=== PATIENT | female | born 1970 | race Caucasian/White ===

== ENCOUNTER 2017-11-30 15:57 | Inpatient (IN) ==
[2017-11-30] MEDS ORDERED: ASPIRIN 325 MG TABLET PO STA (16:34)
[2017-11-30 16:38] LABS: Basophils % 0.2 % (0.0-0.8); Eosinophils # 0.1 10*3/uL (0.0-0.87); Eosinophils % 1.2 % (0.00-10.9); Hematocrit 33.8 VOL% (35.7-47.0); Hemoglobin 10.5 GM/DL (12.0-16.0); Immature Granulocytes % 0.2 %; Immature Granulocytes Absolute 0.01 #; Lymphocytes # 1.7 10*3/uL (1.4-4.0); Lymphocytes % 40.7 % (21.3-54.2); Mean Corpuscular HGB Conc 31.1 GM/DL (32-36); Mean Corpuscular Hemoglobin 27 PG (27-34); Mean Corpuscular Volume 86.2 FL (87-102); Mean Platelet Volume 11.6 FL (9.6-12.0); Monocytes # 0.6 10*3/uL (0.11-0.8); Monocytes % 14.1 % (1.7-12.7); Neutrophils # 1.8 10*3/uL (1.4-7.4); Neutrophils % 43.6 % (38.7-73.9); Platelet Count 111 T/CUMM (130-400); Red Blood Count 3.92 MC/CUMM (3.8-5.5); Red Cell Distribution Width 13.3 % (9.3-17.3); White Blood Count 4.1 T/CUMM (4-12)
[2017-11-30 16:52] LABS: Alanine Aminotransferase 21 U/L (13-56); Albumin 3.3 G/DL (3.4-5.0); Alkaline Phosphatase 98 U/L (45-117); Aspartate Amino Transferase 18 U/L (0-37); Bilirubin,Total < 0.39 MG/DL (0.2-1.0); Blood Urea Nitrogen 7 MG/DL (7-18); Calcium 8.4 MG/DL (8.5-10.1); Glucose 82 MG/DL (74-106); Potassium 3.8 MMOL/L (3.5-5.1); Sodium 143 MMOL/L (136-145); Total Protein 5.5 G/DL (6.4-8.3)
[2017-11-30 17:03] LABS: Barbiturates Screen,Urine Negative (Negative); Benzodiazepines Screen,Urine Negative (Negative); Cannabinoid Screen,Urine Negative (Negative); Opiate Screen,Urine Negative (Negative); Phencyclidine Screen,Urine Negative (Negative)
[2017-11-30] MEDS ORDERED: NAPROXEN 500 MG TABLET PO PRN (18:57)
[2017-11-30] MEDS ORDERED: RIZATRIPTAN ODT 5 MG TABLET PO PRN (18:57)
[2017-11-30] MEDS ORDERED: BACLOFEN 10 MG TABLET PO PRN (18:57)
[2017-11-30] MEDS: ONDANSETRON 4 MG/2 ML VIAL IV PRN ×2 (19:21→23:17)
[2017-11-30] MEDS ORDERED: INFLUENZA VIRUS VACCINE 0.5 ML SYRINGE IM ONE (20:32)
[2017-11-30] MEDS: ACETAMINOPHEN 325 MG TABLET PO PRN (20:58)
[2017-11-30] MEDS: TOPIRAMATE 200 MG TABLET PO SCH (20:59)
[2017-11-30] MEDS: ALPRAZolam 0.5 MG TABLET PO PRN (20:59)
[2017-11-30] MEDS: PANTOPRAZOLE 40 MG TABLET PO SCH (20:59)
[2017-11-30] MEDS: SODIUM CHLORIDE 0.9% 1,000 ML IV SCH (21:00)
[2017-11-30 22:48] LABS: Apearance,Urine CLEAR (Clear); Bilirubin,Urine Negative (Negative); Blood, Urine Negative (Negative); Glucose,Urine (UA) Negative (Negative); Ketones,Urine Negative (Negative); Mucus,Urine Occasional /LPF (Occasional); Nitrite,Urine Negative (Negative); Protein,Urine Negative; Squamous Epithelial Cell,Urine Occasional /HPF (0-10); Urine Color Yellow (Yellow); Urine Specific Gravity 1.004 (1.001-1.035); Urine Urobilinogen < 2.0 EU/DL (0.2-1.0); WBC,Urine <1 /HPF (0-6)
[2017-11-30 22:53] LABS: Troponin I < 0.015 NG/ML (0.00-0.045)
[2017-12-01] MEDS: PROMETHAZINE 25 MG TABLET PO PRN (00:16)
[2017-12-01 01:07] LABS: Basophils % 0.5 % (0.0-0.8); Eosinophils # 0.1 10*3/uL (0.0-0.87); Eosinophils % 1.6 % (0.00-10.9); Hematocrit 33.5 VOL% (35.7-47.0); Hemoglobin 10.1 GM/DL (12.0-16.0); Immature Granulocytes % 0.3 %; Immature Granulocytes Absolute 0.01 #; Lymphocytes # 1.7 10*3/uL (1.4-4.0); Lymphocytes % 44.6 % (21.3-54.2); Mean Corpuscular HGB Conc 30.1 GM/DL (32-36); Mean Corpuscular Hemoglobin 26 PG (27-34); Mean Platelet Volume 11.5 FL (9.6-12.0); Monocytes # 0.6 10*3/uL (0.11-0.8); Monocytes % 16.5 % (1.7-12.7); Neutrophils # 1.4 10*3/uL (1.4-7.4); Neutrophils % 36.5 % (38.7-73.9); Platelet Count 102 T/CUMM (130-400); Red Blood Count 3.85 MC/CUMM (3.8-5.5); Red Cell Distribution Width 13.2 % (9.3-17.3); White Blood Count 3.8 T/CUMM (4-12)
[2017-12-01 01:22] LABS: Osmolality,Calculated 282.7 MOS/KG (273-304)
[2017-12-01 01:25] LABS: Risk Ratio 3.08; VLDL CHOLESTEROL 11.2 MG/DL
[2017-12-01 01:26] LABS: Troponin I < 0.015 NG/ML (0.00-0.045)
[2017-12-01 02:26] LABS: Band Neutrophils 1 % (0-10); Eosinophils 2 % (0-10); Lymphocytes 45 % (20-55); Nucleated Red Blood Cells 3 (0-5); Segmented Neutrophils 39 % (50-85); Total Cells Counted 100
[2017-12-01 02:27] LABS: Anisocytosis Slight; Microcytosis Slight; Platelet Estimate Decreased
[2017-12-01] MEDS: ONDANSETRON 4 MG/2 ML VIAL IV PRN ×3 (06:04→22:00)
[2017-12-01] MEDS: LEVOTHYROXINE 100 MCG TABLET PO SCH (06:04)
[2017-12-01] MEDS ORDERED: CYANOCOBALAMIN 1000 MCG/1 ML VIAL IM SCH (09:00)
[2017-12-01] MEDS ORDERED: PANTOPRAZOLE 40 MG TABLET PO SCH (09:00)
[2017-12-01] MEDS ORDERED: MAGNESIUM SULF RIDER 4 GM in PREMIX 1 EACH IV PRN (09:04)
[2017-12-01] MEDS: ESCITALOPRAM 10 MG TABLET PO SCH (09:06)
[2017-12-01] MEDS: PANTOPRAZOLE 40 MG TABLET PO SCH ×2 (09:06→20:21)
[2017-12-01] MEDS: PROPRANOLOL 40 MG TABLET PO SCH (09:06)
[2017-12-01] MEDS: buPROPion XL 150 MG TABLET PO SCH (09:06)
[2017-12-01] MEDS: TOPIRAMATE 200 MG TABLET PO SCH ×2 (09:06→20:21)
[2017-12-01] MEDS: CETIRIZINE 10 MG TABLET PO SCH (09:06)
[2017-12-01] MEDS: POTASSIUM CHLORIDE 20 MEQ TABLET PO PRN ×3 (10:24→18:49)
[2017-12-01] MEDS: MAGNESIUM SULF RIDER 2 GM in PREMIX 1 EACH IV PRN (10:29)
[2017-12-01] MEDS ORDERED: LORazepam 2 MG/1 ML VIAL IV ONE (14:01)
[2017-12-01] MEDS: SODIUM CHLORIDE 0.9% 1,000 ML IV SCH (15:48)
[2017-12-01] MEDS: ALPRAZolam 0.5 MG TABLET PO PRN (20:21)
[2017-12-02 04:58] LABS: Basophils % 0.2 % (0.0-0.8); Eosinophils # 0.1 10*3/uL (0.0-0.87); Eosinophils % 1.3 % (0.00-10.9); Hematocrit 34.1 VOL% (35.7-47.0); Hemoglobin 10.5 GM/DL (12.0-16.0); Immature Granulocytes % 0.4 %; Immature Granulocytes Absolute 0.02 #; Lymphocytes # 1.6 10*3/uL (1.4-4.0); Lymphocytes % 29.7 % (21.3-54.2); Mean Corpuscular HGB Conc 30.8 GM/DL (32-36); Mean Corpuscular Hemoglobin 27 PG (27-34); Mean Corpuscular Volume 87.2 FL (87-102); Mean Platelet Volume 11.7 FL (9.6-12.0); Monocytes # 0.5 10*3/uL (0.11-0.8); Monocytes % 9.6 % (1.7-12.7); Neutrophils # 3.1 10*3/uL (1.4-7.4); Neutrophils % 58.8 % (38.7-73.9); Platelet Count 109 T/CUMM (130-400); Red Blood Count 3.91 MC/CUMM (3.8-5.5); Red Cell Distribution Width 13.3 % (9.3-17.3); White Blood Count 5.3 T/CUMM (4-12)
[2017-12-02 05:24] LABS: Calcium 8.2 MG/DL (8.5-10.1); Osmolality,Calculated 286.6 MOS/KG (273-304); Potassium 4.2 MMOL/L (3.5-5.1)
[2017-12-02] MEDS: PROMETHAZINE 25 MG TABLET PO PRN ×2 (06:31→15:37)
[2017-12-02] MEDS: LEVOTHYROXINE 100 MCG TABLET PO SCH (06:31)
[2017-12-02] MEDS: SODIUM CHLORIDE 0.9% 1,000 ML IV SCH ×2 (06:31→15:05)
[2017-12-02] MEDS: TOPIRAMATE 200 MG TABLET PO SCH ×2 (09:33→21:26)
[2017-12-02] MEDS: PANTOPRAZOLE 40 MG TABLET PO SCH ×2 (09:33→21:26)
[2017-12-02] MEDS: buPROPion XL 150 MG TABLET PO SCH (09:33)
[2017-12-02] MEDS: CETIRIZINE 10 MG TABLET PO SCH (09:34)
[2017-12-02] MEDS: ASPIRIN EC 81 MG TABLET PO SCH (09:34)
[2017-12-02] MEDS: ESCITALOPRAM 10 MG TABLET PO SCH (09:34)
[2017-12-02] MEDS: PROPRANOLOL 40 MG TABLET PO SCH (09:35)
[2017-12-02] MEDS: ACETAMINOPHEN 325 MG TABLET PO PRN (21:26)
[2017-12-02] MEDS: ALPRAZolam 0.5 MG TABLET PO PRN (21:26)
[2017-12-03 06:15] LABS: Calcium 7.9 MG/DL (8.5-10.1); Osmolality,Calculated 287.4 MOS/KG (273-304); Potassium 3.6 MMOL/L (3.5-5.1)
[2017-12-03 06:19] LABS: Free T4 (Free Thyroxine) 1.38 NG/DL (0.76-1.46); Thyroid Stimulating Hormone < 0.005 uIU/ml (0.358-3.74)
[2017-12-03] MEDS: PROMETHAZINE 25 MG TABLET PO PRN ×2 (07:01→15:17)
[2017-12-03] MEDS: LEVOTHYROXINE 100 MCG TABLET PO SCH (07:01)
[2017-12-03 07:02] LABS: Basophils % 0.3 % (0.0-0.8); Eosinophils # 0.1 10*3/uL (0.0-0.87); Eosinophils % 2.8 % (0.00-10.9); Hematocrit 31.4 VOL% (35.7-47.0); Hemoglobin 9.4 GM/DL (12.0-16.0); Immature Granulocytes % 0.3 %; Immature Granulocytes Absolute 0.01 #; Lymphocytes # 1.6 10*3/uL (1.4-4.0); Lymphocytes % 45.4 % (21.3-54.2); Mean Corpuscular HGB Conc 29.9 GM/DL (32-36); Mean Corpuscular Hemoglobin 27 PG (27-34); Mean Platelet Volume 11.9 FL (9.6-12.0); Monocytes # 0.4 10*3/uL (0.11-0.8); Monocytes % 10.9 % (1.7-12.7); Neutrophils # 1.5 10*3/uL (1.4-7.4); Neutrophils % 40.3 % (38.7-73.9); Red Blood Count 3.53 MC/CUMM (3.8-5.5); Red Cell Distribution Width 13.4 % (9.3-17.3); White Blood Count 3.6 T/CUMM (4-12)
[2017-12-03 07:05] LABS: Platelet Count 73 T/CUMM (130-400)
[2017-12-03 07:31] LABS: Hypochromasia 1+; Ovalocytes Slight; Platelet Estimate Decreased
[2017-12-03] MEDS: PROPRANOLOL 40 MG TABLET PO SCH (09:51)
[2017-12-03] MEDS: TOPIRAMATE 200 MG TABLET PO SCH ×2 (09:54→20:00)
[2017-12-03] MEDS: CETIRIZINE 10 MG TABLET PO SCH (09:54)
[2017-12-03] MEDS: ESCITALOPRAM 10 MG TABLET PO SCH (09:54)
[2017-12-03] MEDS: buPROPion XL 150 MG TABLET PO SCH (09:54)
[2017-12-03] MEDS: PANTOPRAZOLE 40 MG TABLET PO SCH (09:54)
[2017-12-03] MEDS: MAGNESIUM SULF RIDER 2 GM in PREMIX 1 EACH IV PRN (09:55)
[2017-12-03] MEDS: ASPIRIN EC 81 MG TABLET PO SCH (09:55)
[2017-12-03] MEDS: ONDANSETRON 4 MG/2 ML VIAL IV PRN ×2 (10:02→19:42)
[2017-12-03] MEDS ORDERED: KETOROLAC 15 MG/1 ML VIAL IV ONE (11:45)
[2017-12-03] MEDS: ALPRAZolam 0.5 MG TABLET PO PRN (20:00)
[2017-12-04] MEDS: PANTOPRAZOLE 40 MG TABLET PO SCH ×3 (02:19→20:25)
[2017-12-04 03:26] LABS: Basophils % 0.4 % (0.0-0.8); Eosinophils # 0.1 10*3/uL (0.0-0.87); Eosinophils % 2.9 % (0.00-10.9); Hematocrit 29.3 VOL% (35.7-47.0); Hemoglobin 8.9 GM/DL (12.0-16.0); Immature Granulocytes % 0.4 %; Immature Granulocytes Absolute 0.01 #; Lymphocytes # 1.3 10*3/uL (1.4-4.0); Mean Corpuscular HGB Conc 30.4 GM/DL (32-36); Mean Corpuscular Hemoglobin 26 PG (27-34); Mean Corpuscular Volume 86.7 FL (87-102); Mean Platelet Volume 11.6 FL (9.6-12.0); Monocytes # 0.2 10*3/uL (0.11-0.8); Monocytes % 8.6 % (1.7-12.7); Neutrophils # 1.2 10*3/uL (1.4-7.4); Neutrophils % 42.7 % (38.7-73.9); Platelet Count 69 T/CUMM (130-400); Red Blood Count 3.38 MC/CUMM (3.8-5.5); Red Cell Distribution Width 13.3 % (9.3-17.3); White Blood Count 2.8 T/CUMM (4-12)
[2017-12-04 04:01] LABS: Osmolality,Calculated 289.3 MOS/KG (273-304); Potassium 3.5 MMOL/L (3.5-5.1)
[2017-12-04 04:20] LABS: Band Neutrophils 2 % (0-10); Eosinophils 4 % (0-10); Lymphocytes 46 % (20-55); Platelet Estimate Decreased; Segmented Neutrophils 43 % (50-85); Total Cells Counted 100
[2017-12-04] MEDS: LEVOTHYROXINE 100 MCG TABLET PO SCH (06:19)
[2017-12-04] MEDS: PROMETHAZINE 25 MG TABLET PO PRN (06:19)
[2017-12-04] MEDS: TOPIRAMATE 200 MG TABLET PO SCH ×2 (09:22→20:25)
[2017-12-04] MEDS: PROPRANOLOL 40 MG TABLET PO SCH (09:22)
[2017-12-04] MEDS: ESCITALOPRAM 10 MG TABLET PO SCH (09:23)
[2017-12-04] MEDS: ASPIRIN EC 81 MG TABLET PO SCH (09:23)
[2017-12-04] MEDS: CETIRIZINE 10 MG TABLET PO SCH (09:23)
[2017-12-04] MEDS: MAGNESIUM SULF RIDER 2 GM in PREMIX 1 EACH IV PRN (09:24)
[2017-12-04] MEDS: buPROPion XL 150 MG TABLET PO SCH (09:24)
[2017-12-04] MEDS ORDERED: COSYNTROPIN 0.25 MG VIAL IV ONE (10:53)
[2017-12-04] MEDS ORDERED: FLUDROCORTISONE 0.1 MG TABLET PO SCH (11:00)
[2017-12-04] MEDS ORDERED: BACLOFEN 10 MG TABLET PO PRN (15:18)
[2017-12-04] MEDS ORDERED: ALPRAZolam 0.5 MG TABLET PO PRN (15:19)
[2017-12-04] MEDS: HYDROCORTISONE 100 MG VIAL IV SCH (18:00)
[2017-12-04] MEDS: ONDANSETRON 4 MG/2 ML VIAL IV PRN ×2 (18:01→22:16)
[2017-12-04] MEDS: AMITRIPTYLINE 50 MG TABLET PO PRN (20:24)
[2017-12-05] MEDS: ONDANSETRON 4 MG/2 ML VIAL IV PRN ×4 (02:24→21:08)
[2017-12-05] MEDS: HYDROCORTISONE 100 MG VIAL IV SCH ×3 (02:26→17:30)
[2017-12-05] MEDS: LEVOTHYROXINE 100 MCG TABLET PO SCH (06:00)
[2017-12-05] MEDS: PANTOPRAZOLE 40 MG TABLET PO SCH ×2 (09:07→21:07)
[2017-12-05] MEDS: buPROPion XL 150 MG TABLET PO SCH (09:07)
[2017-12-05] MEDS: ASPIRIN EC 81 MG TABLET PO SCH (09:08)
[2017-12-05] MEDS: CETIRIZINE 10 MG TABLET PO SCH (09:08)
[2017-12-05] MEDS: PROPRANOLOL 40 MG TABLET PO SCH (09:08)
[2017-12-05] MEDS: levETIRAcetam 500 MG TABLET PO SCH ×2 (09:08→21:06)
[2017-12-05] MEDS ORDERED: SODIUM CHLORIDE 0.45% 1,000 ML IV SCH (14:30)
[2017-12-05] MEDS: DEXT 5% NACL 0.45% KCL 20 MEQ 20 MEQ/1,000 ML BAG IV SCH (17:25)
[2017-12-05] MEDS: AMITRIPTYLINE 50 MG TABLET PO PRN (21:07)
[2017-12-06] MEDS: DEXT 5% NACL 0.45% KCL 20 MEQ 20 MEQ/1,000 ML BAG IV SCH ×2 (02:28→12:21)
[2017-12-06] MEDS: ONDANSETRON 4 MG/2 ML VIAL IV PRN ×3 (02:30→20:00)
[2017-12-06] MEDS: HYDROCORTISONE 100 MG VIAL IV SCH ×2 (02:37→09:00)
[2017-12-06] MEDS: LEVOTHYROXINE 100 MCG TABLET PO SCH (06:10)
[2017-12-06 06:25] LABS: Basophils % 0.3 % (0.0-0.8); Eosinophils % 0.6 % (0.00-10.9); Hematocrit 32.5 VOL% (35.7-47.0); Immature Granulocytes % 0.6 %; Immature Granulocytes Absolute 0.02 #; Lymphocytes # 0.9 10*3/uL (1.4-4.0); Lymphocytes % 26.7 % (21.3-54.2); Mean Corpuscular HGB Conc 30.8 GM/DL (32-36); Mean Corpuscular Hemoglobin 27 PG (27-34); Mean Corpuscular Volume 87.8 FL (87-102); Mean Platelet Volume 11.5 FL (9.6-12.0); Monocytes # 0.2 10*3/uL (0.11-0.8); Monocytes % 4.6 % (1.7-12.7); Neutrophils # 2.3 10*3/uL (1.4-7.4); Neutrophils % 67.2 % (38.7-73.9); Platelet Count 76 T/CUMM (130-400); Red Cell Distribution Width 13.5 % (9.3-17.3); White Blood Count 3.5 T/CUMM (4-12)
[2017-12-06 06:53] LABS: Alanine Aminotransferase 12 U/L (13-56); Albumin 2.7 G/DL (3.4-5.0); Alkaline Phosphatase 80 U/L (45-117); Aspartate Amino Transferase 12 U/L (0-37); Bilirubin,Total < 0.39 MG/DL (0.2-1.0); Blood Urea Nitrogen 6 MG/DL (7-18); Calcium 8.1 MG/DL (8.5-10.1); Glucose 134 MG/DL (74-106); Osmolality,Calculated 295.1 MOS/KG (273-304); Sodium 149 MMOL/L (136-145)
[2017-12-06 06:54] LABS: % Iron Saturation 37.6 % (18-50)
[2017-12-06 07:02] LABS: Folate 4.3 NG/ML (5.4-24.0)
[2017-12-06 08:01] LABS: Platelet Estimate Decreased
[2017-12-06] MEDS: levETIRAcetam 500 MG TABLET PO SCH ×2 (08:57→20:51)
[2017-12-06] MEDS: PANTOPRAZOLE 40 MG TABLET PO SCH ×2 (08:58→20:51)
[2017-12-06] MEDS: PROPRANOLOL 40 MG TABLET PO SCH (08:58)
[2017-12-06] MEDS: ASPIRIN EC 81 MG TABLET PO SCH (08:58)
[2017-12-06] MEDS: buPROPion XL 150 MG TABLET PO SCH (08:58)
[2017-12-06] MEDS: CETIRIZINE 10 MG TABLET PO SCH (08:58)
[2017-12-06] MEDS: DEXTROSE 5% 1,000 ML IV SCH (12:22)
[2017-12-06] MEDS: predniSONE 5 MG TABLET PO SCH (17:20)
[2017-12-06] MEDS: AMITRIPTYLINE 50 MG TABLET PO PRN (20:51)
[2017-12-07] MEDS: LEVOTHYROXINE 100 MCG TABLET PO SCH (06:11)
[2017-12-07 07:54] LABS: Basophils % 0.3 % (0.0-0.8); Eosinophils % 1.1 % (0.00-10.9); Hemoglobin 9.4 GM/DL (12.0-16.0); Immature Granulocytes % 0.3 %; Immature Granulocytes Absolute 0.01 #; Lymphocytes # 1.6 10*3/uL (1.4-4.0); Lymphocytes % 43.8 % (21.3-54.2); Mean Corpuscular HGB Conc 30.3 GM/DL (32-36); Mean Corpuscular Hemoglobin 27 PG (27-34); Mean Corpuscular Volume 87.8 FL (87-102); Monocytes # 0.3 10*3/uL (0.11-0.8); Monocytes % 8.9 % (1.7-12.7); Neutrophils # 1.7 10*3/uL (1.4-7.4); Neutrophils % 45.6 % (38.7-73.9); Platelet Count 73 T/CUMM (130-400); Red Blood Count 3.53 MC/CUMM (3.8-5.5); Red Cell Distribution Width 13.4 % (9.3-17.3); White Blood Count 3.6 T/CUMM (4-12)
[2017-12-07 08:13] LABS: Alanine Aminotransferase 13 U/L (13-56); Albumin 2.5 G/DL (3.4-5.0); Alkaline Phosphatase 71 U/L (45-117); Aspartate Amino Transferase 11 U/L (0-37); Bilirubin,Total < 0.39 MG/DL (0.2-1.0); Blood Urea Nitrogen 4 MG/DL (7-18); Calcium 7.9 MG/DL (8.5-10.1); Glucose 88 MG/DL (74-106); Osmolality,Calculated 289.3 MOS/KG (273-304); Potassium 3.2 MMOL/L (3.5-5.1); Sodium 148 MMOL/L (136-145); Total Protein 4.6 G/DL (6.4-8.3)
[2017-12-07 08:16] LABS: Hypochromasia 1+; Ovalocytes Slight; Platelet Estimate Decreased
[2017-12-07] MEDS: buPROPion XL 150 MG TABLET PO SCH (09:24)
[2017-12-07] MEDS: levETIRAcetam 500 MG TABLET PO SCH (09:24)
[2017-12-07] MEDS: ASPIRIN EC 81 MG TABLET PO SCH (09:24)
[2017-12-07] MEDS: predniSONE 5 MG TABLET PO SCH (09:26)
[2017-12-07] MEDS: PANTOPRAZOLE 40 MG TABLET PO SCH (09:26)
[2017-12-07] MEDS: CETIRIZINE 10 MG TABLET PO SCH (09:26)
[2017-12-07] MEDS: POTASSIUM CHLORIDE 20 MEQ TABLET PO PRN ×4 (09:28→16:52)
[2017-12-07] MEDS: MAGNESIUM SULF RIDER 2 GM in PREMIX 1 EACH IV PRN (09:28)
[2017-12-07] MEDS: PROPRANOLOL 40 MG TABLET PO SCH (09:33)
[2017-12-07] MEDS: DEXTROSE 5% 1,000 ML IV SCH (10:07)
[2017-12-07 17:14] VITALS: BP 108/61
== END 2017-12-07 18:40 | disposition home or self-care (01) | DRG 644 ==
LOC: EDBD → EDUNIT# → N.ED 15:57 → N.EDINP 18:15 → SUATTDRO 18:15 → N.5E 18:42
PROVIDERS: ADMIT Internal Medicine